=== PATIENT | female | born 1945 | race Caucasian/White ===

== ENCOUNTER 2017-01-07 12:29 | Outpatient (CLI) | payer MEDICARE ==
[2017-01-07 16:43] LABS: ALT (SGPT) 19 U/L (0-55); AST (SGOT) 22 U/L (5-34); Albumin 4.4 g/dL (3.4-4.8); Alkaline Phosphatase 96 U/L (40-150); Anion Gap 16 mmol/L (10-20); BUN (Urea Nitrogen) 24 mg/dL (9.8-20.1); Bilirubin, Total 0.5 mg/dL (0.2-1.2); Calc. Creatinine Clearance 0 mL/min (70-130); Calcium 9.3 mg/dL (7.8-10.44); Carbon Dioxide 24 mmol/L (23-31); Cardiac Risk 4.2 (Less than 4.5); Chloride 108 mmol/L (98-107); Cholesterol 207 mg/dL (< 200 Desired); Estimated GFR-MDRD 85; Globulin 2.6 g/dL (2.4-3.5); Glucose 100 mg/dL (83-110); HDL Cholesterol 49 mg/dL (>60 Neg Risk); LDL Cholesterol, Calculated 133 mg/dL; Potassium 4.8 mmol/L (3.5-5.1); Sodium 143 mmol/L (136-145); Triglycerides 123 mg/dL (Less than 150)
== END 2017-01-07 12:30 ==
LOC: LABLEX 12:29
PROVIDERS: ATTEND Family Medicine
DX: E03.9 Hypothyroidism, unspecified (principal); E78.2 Mixed hyperlipidemia
CPT/HCPCS: 80053; 80061; 84443

== ENCOUNTER 2017-03-19 09:40 | Outpatient (CLI) | payer MEDICARE ==
[2017-03-19 18:34] LABS: ALT (SGPT) 20 U/L (8-55); AST (SGOT) 20 U/L (5-34); Albumin 4.3 g/dL (3.4-4.8); Alkaline Phosphatase 85 U/L (40-150); Anion Gap 17 mmol/L (10-20); BUN (Urea Nitrogen) 29 mg/dL (9.8-20.1); Bilirubin, Total 0.6 mg/dL (0.2-1.2); Calc. Creatinine Clearance 0 mL/min (70-130); Calcium 9.2 mg/dL (7.8-10.44); Carbon Dioxide 23 mmol/L (23-31); Cardiac Risk 3.8 (Less than 4.5); Chloride 107 mmol/L (98-107); Cholesterol 167 mg/dl (< 200 Desired); Estimated GFR-MDRD 75; Globulin 2.8 g/dL (2.4-3.5); Glucose 84 mg/dL (83-110); HDL Cholesterol 44 mg/dL (>60 Neg Risk); LDL Cholesterol, Calculated 93 mg/dL; Protein, Total 7.1 g/dL (6.0-8.3); Sodium 142 mmol/L (136-145); Triglycerides 149 mg/dL (Less than 150)
== END 2017-03-19 09:41 | disposition home or self-care (01) ==
LOC: LABLEX 09:40
PROVIDERS: ATTEND Family Medicine
DX: E78.2 Mixed hyperlipidemia (principal); G45.9 Transient cerebral ischemic attack, unspecified; E03.9 Hypothyroidism, unspecified
CPT/HCPCS: 80053; 80061; 84443

== ENCOUNTER 2022-06-17 08:26 | Emergency (ER) | payer MEDICARE ==
[2022-06-17 09:05] LABS: #Basophils 0.1 thou/uL (0.0-0.2); #Eosinphils 0.2 thou/uL (0.0-0.7); #Lymphocytes 1.8 thou/uL (1.20-3.40); #Monocytes 0.5 thou/uL (0.11-0.59); #Neutrophils 3.2 thou/uL (1.40-6.50); %Basophils 1.2 % (0.0-1.0); %Eosinophils 3.8 % (0.0-10.0); %Lymphocytes 31.6 % (21.0-51.0); %Monocytes 7.8 % (0.0-10.0); %Neutrophils 55.6 % (42.0-75.0); Hemoglobin 12.5 g/dL (12.0-16.0); Mean Corpuscular HGB CONC 32.9 g/dL (32.0-36.0); Mean Corpuscular Hemoglobin 29.9 pg (27.0-31.0); Mean Corpuscular Volume 90.9 fL (78.0-98.0); Mean Platelet Volume 8.4 fL (7.4-10.4); Platelet Count 248 thou/uL (130-400); Red Blood Cell (RBC) Count 4.18 mill/uL (4.20-5.40); White Blood Cell (WBC) Count 5.8 thou/uL (4.8-10.8)
[2022-06-17 09:24] LABS: ALT (SGPT) 14 U/L (8-55); AST (SGOT) 16 U/L (5-34); Albumin 4.3 g/dL (3.4-4.8); Alkaline Phosphatase 73 U/L (40-110); Anion Gap 15 mmol/L (10-20); BUN (Urea Nitrogen) 19 mg/dL (9.8-20.1); Bilirubin, Total 0.3 mg/dL (0.2-1.2); Calc. Creatinine Clearance 0 mL/min (70-130); Calcium 9.1 mg/dL (7.8-10.44); Carbon Dioxide 24 mmol/L (23-31); Chloride 107 mmol/L (98-107); Estimated GFR 89; Globulin 3.1 g/dL (2.4-3.5); Glucose 101 mg/dL (83-110); Lipase 31 U/L (8-78); Potassium 4.5 mmol/L (3.5-5.1); Protein, Total 7.4 g/dL (5.8-8.1); Sodium 141 mmol/L (136-145)
== END 2022-06-17 10:07 | disposition home or self-care (01) ==
LOC: BURERS 08:26
DX: M54.6 Pain in thoracic spine (principal)
CPT/HCPCS: 71045; 80053; 83690; 83880; 84484; 85025; 93005

== ENCOUNTER 2023-02-04 08:07 | Emergency (ER) | payer MEDICARE ==
[2023-02-04] MEDS ORDERED: Ibuprofen 200 MG TAB ONE (09:31)
== END 2023-02-04 10:12 | disposition home or self-care (01) ==
LOC: BURERS 08:07
DX: S20.211A Contusion of right front wall of thorax, initial encounter (principal); S30.1XXA Contusion of abdominal wall, initial encounter; E78.00 Pure hypercholesterolemia, unspecified; E03.9 Hypothyroidism, unspecified; Z79.899 Other long term (current) drug therapy; W19.XXXA Unspecified fall, initial encounter
CPT/HCPCS: 71046; 74019; 93005

== ENCOUNTER 2023-11-11 10:11 | Emergency (ER) | payer MEDICARE ==
[2023-11-11 11:13] LABS: #Basophils 0.1 thou/uL (0.0-0.2); #Eosinphils 0.3 thou/uL (0.0-0.7); #Lymphocytes 1.5 thou/uL (1.20-3.40); #Monocytes 0.6 thou/uL (0.11-0.59); #Neutrophils 4.4 thou/uL (1.40-6.50); %Basophils 0.9 % (0.0-1.0); %Eosinophils 3.9 % (0.0-10.0); %Lymphocytes 21.5 % (21.0-51.0); %Monocytes 8.9 % (0.0-10.0); %Neutrophils 64.8 % (42.0-75.0); Hematocrit 36.4 % (36.0-47.0); Hemoglobin 12.1 g/dL (12.0-16.0); Mean Corpuscular HGB CONC 33.2 g/dL (32.0-36.0); Mean Corpuscular Hemoglobin 27.9 pg (27.0-31.0); Mean Corpuscular Volume 84.1 fl (78.0-98.0); Mean Platelet Volume 9.7 fL (7.4-10.4); Platelet Count 215 10x3/uL (130-400); RBC Distribution Width 11.5 % (11.5-14.5); Red Blood Cell (RBC) Count 4.33 mill/uL (4.20-5.40); White Blood Cell (WBC) Count 6.8 10x3/uL (4.8-10.8)
[2023-11-11 11:28] LABS: ALT (SGPT) 19 U/L (8-55); AST (SGOT) 19 U/L (5-34); Albumin 4.1 g/dL (3.4-4.8); Alkaline Phosphatase 84 U/L (40-110); Anion Gap 13 mmol/L (10-20); BUN (Urea Nitrogen) 18 mg/dL (9.8-20.1); Bilirubin, Total 0.6 mg/dL (0.2-1.2); Calc. Creatinine Clearance 0 mL/min (70-130); Calcium 8.9 mg/dL (7.8-10.44); Carbon Dioxide 22 mmol/L (23-31); Chloride 109 mmol/L (98-107); Estimated GFR 83; Globulin 2.9 g/dL (2.4-3.5); Glucose 90 mg/dL (83-110); Potassium 3.4 mmol/L (3.5-5.1); Sodium 141 mmol/L (136-145)
[2023-11-11] MEDS ORDERED: Dicyclomine 20 MG TAB ONE (13:57)
[2023-11-12 02:41] LABS: Campy jejuni + coli by PCR Negative (Negative); STEC Shiga Toxin 1+2 Negative (Negative); Salmonella spp. by PCR Negative (Negative); Shigella spp + EIEC by PCR Negative (Negative)
== END 2023-11-11 14:02 | disposition home or self-care (01) ==
LOC: BURERS 10:11
DX: R19.7 Diarrhea, unspecified (principal); E03.9 Hypothyroidism, unspecified; E78.00 Pure hypercholesterolemia, unspecified
CPT/HCPCS: 36415; 80053; 85025; 87505; 99284

== ENCOUNTER 2025-09-15 15:37 | Emergency (ER) | payer MEDICARE ==
[2025-09-15 16:21] LABS: #Basophils 0.1 thou/uL (0.0-0.2); #Eosinophils 0.1 thou/uL (0.0-0.7); #Lymphocytes 2.3 thou/uL (1.20-3.40); #Monocytes 0.5 thou/uL (0.11-0.59); #Neutrophils 3.0 thou/uL (1.40-6.50); %Basophils 1.1 % (0.0-1.0); %Eosinophils 2.2 % (0.0-10.0); %Lymphocytes 38.4 % (21.0-51.0); %Monocytes 7.8 % (0.0-10.0); %Neutrophils 50.5 % (42.0-75.0); Hematocrit 39.7 % (36.0-47.0); Hemoglobin 12.4 g/dL (12.0-16.0); Mean Corpuscular Hemoglobin 29.9 pg (27.0-31.0); Mean Corpuscular Volume 95.6 fl (78.0-98.0); Platelet Count 267 10x3/uL (130-400); Red Blood Cell (RBC) Count 4.15 mill/uL (4.20-5.40); White Blood Cell (WBC) Count 5.9 10x3/uL (4.8-10.8)
[2025-09-15 16:25] LABS: Glucose, Urine (Dipstick) Negative (Negative); Leukocyte Moderate (Negative); Protein, Urine (Dipstick) Negative (Neg-Trace); Specific Gravity, Urine 1.020 (1.005-1.030)
[2025-09-15] MEDS ORDERED: Acetaminophen 500 MG TAB ONE (16:25)
[2025-09-15 16:33] LABS: Bacteria/HPF 1+ HPF (None Seen); CAUTI Indications for Culture Pelvic or flank pain; Mucous/LPF Few LPF (<2+); RBC/HPF None Seen HPF (0-3)
[2025-09-15 16:35] LABS: Urine Culture Reflex Yes Yes
[2025-09-15 16:44] LABS: ALT (SGPT) 30 U/L (Less than 34); AST (SGOT) 30 U/L (11-34); Albumin 4.3 g/dL (3.1-4.5); Alkaline Phosphatase 60 U/L (40-110); Anion Gap 15 mmol/L (10-20); BUN (Urea Nitrogen) 33 mg/dL (9.8-20.1); Bilirubin, Total 0.3 mg/dL (0.3-1.2); Calc. Creatinine Clearance 0 mL/min (70-130); Calcium 9.4 mg/dL (7.8-10.44); Carbon Dioxide 26 mmol/L (23-31); Chloride 105 mmol/L (98-107); Globulin 3.0 g/dL (2.4-3.5); Glucose 89 mg/dL (83-110); Potassium 4.3 mmol/L (3.5-5.1); Sodium 142 mmol/L (136-145)
[2025-09-15] MEDS ORDERED: Cephalexin 250 MG CAP ONE (16:45)
== END 2025-09-15 16:50 | disposition home or self-care (01) ==
LOC: BURERS 15:37
DX: N39.0 Urinary tract infection, site not specified (principal)
CPT/HCPCS: 80053; 81001; 85025; 87086; 99284